=== PATIENT | male | born 1960 | race Caucasian/White ===

== ENCOUNTER 2021-02-27 18:58 | Emergency (ER) | payer OTHER, SELFPAY ==
[2021-02-27 18:59] VITALS: BP 106/70; PULSE 69; RESP 18; TEMP 35.8; O2SAT 94; BMI 35.7
[2021-02-27 19:30] VITALS: BP 97/69; PULSE 65; RESP 16; O2SAT 93
--- NOTE | 2021-02-27 19:43 | EKG12_ITS ---
Test Reason : SYNCOPE Blood Pressure : / mmHG Vent. Rate : 063 BPM Atrial Rate : 063 BPM P-R Int : 170 ms QRS Dur : 074 ms QT Int : 390 ms P-R-T Axes : 046 -19 030 degrees QTc Int : 399 ms Normal sinus rhythm Normal ECG Confirmed by EDAGRDO SALINAS, NEISHA ([id number]), editor magazine SHOSHANA VEGA ([id number]) on 03/02/2021 8:53:16 AM Referred By: JEREMY Confirmed By:NEISHA REYNOSO MD
--- NOTE | 2021-02-27 19:43 | CT_ITS ---
INDICATION: fall EXAMINATION: CT CERVICAL SPINE - CT Spine Cervical W/O Contrast Injection TECHNIQUE: Helically acquired images were obtained of the cervical spine. 2D reformatted images were reviewed. A radiation dose optimization technique was used for this scan. IV Contrast dosage and agent: None. COMPARISON: None. FINDINGS: VERTEBRAE: No fracture or traumatic subluxation. No discrete lytic or blastic abnormality. No focal malalignment however there is loss of the normal lordotic curvature. This can be degenerative or associated with muscle spasms. Normal craniocervical junction and cervicothoracic junction. DISCS and SPINAL CANAL: There is multilevel degenerative disc and endplate changes as well as uncovertebral joint arthropathy, C3-4, through C6-7. This does appear to result in some mild bilateral neural foraminal narrowing at C5-6 and C6-7 greater than C4-5. There is also C7-T1 significant bilateral facet arthropathy and hypertrophy resulting in some mild neuroforaminal narrowing bilaterally. There is appear to be some moderate central canal stenosis at C6-7. Assessment is limited on CT. NECK SOFT TISSUES: No prevertebral soft tissue swelling. There is no cervical adenopathy. Note of tortuous common carotid arteries. LUNG APICES: Clear. CT/Spine Cervical without Contras IMPRESSION: No fracture or focal malalignment to suggest ligamentous injury. Degenerative disc disease with uncovertebral joint and facet joint arthropathy as above. There does appear to be some central canal and neural foraminal narrowing as above. Electronically Signed: Fermin Charles DO at 22:33 EDT Tel , Service support ,
[2021-02-27 19:55] LABS: Absolute Lymphocyte Count 1.69 X10^3/uL (0.83-4.51); Absolute Neutrophil Count 4.9 X10^3/uL (2.0-7.7); Basophil# 0.03 X10^3/uL; Basophil% 0.4 % (0-1); Eosinophil# 0.15 X10^3/uL; Hematocrit 44.9 % (40-54); Hemoglobin 14.8 g/dL (13.0-16.5); Lymphocyte # 1.69 X10^3/ul (0.83-4.51); Lymphocyte % 22.9 % (19-41); Mean Corpuscular Hgb 30.4 pg (27.0-32.0); Mean Corpuscular Volume 92.2 fL (80-94); Mean Platelet Vol. 10.2 fl (6.2-12.0); Monocyte# 0.62 X10^3/uL; Monocyte% 8.4 % (0-10); NRBC Flagged by Analyzer 0 % (0-5); Neutrophil # 4.87 X10^3/uL (2.7-7.7); Neutrophil % 65.9 % (47-70); Platelet Count 191 K/mm3 (150-450); RBC Distribution Width CV 13.6 % (11.6-14.6); RBC Distribution Width SD 46.7 fl (35.1-43.9); Red Blood Count 4.87 M/mm3 (4.6-6.2); White Blood Count 7.4 K/mm3 (4.4-11.0)
[2021-02-27 20:08] LABS: Anion Gap 7 (5-15); BUN 11 mg/dL (7-18); BUN/Creat Ratio 10.9 RATIO (10-20); Calcium,Total 8.3 mg/dL (8.5-10.1); Chloride 108 mmol/L (98-107); Creatinine, Serum 1.01 mg/dL (0.70-1.30); EST Glomerular Filtration Rate 80 mL/min (>60); Est Glom Filt Rate - Afr Amer 97 mL/min (>60); Estimated Creatinine Clearance 91.56 ml/min; Glucose 96 mg/dL (74-106); Potassium 4.3 mmol/L (3.5-5.1); Sodium Level 142 mmol/L (136-145)
[2021-02-27 20:25] LABS: Troponin-I HS 4 pg/mL (3.0-78.0)
--- NOTE | 2021-02-27 20:45 | CT_ITS ---
INDICATION: fall EXAMINATION: CT BRAIN - CT Head or Brain W/O Contrast Injection TECHNIQUE: Multiple axial images were obtained of the head without intravenous contrast. A radiation dose optimization technique was used for this scan. IV Contrast dosage and agent: None. COMPARISON: CT cervical spine 02/27/2021. No prior head imaging. FINDINGS: BRAIN PARENCHYMA: No intra- or extra-axial hemorrhage. No evidence of acute infarct. No intracranial mass or mass effect. There is preservation of the plasencia/white matter interface. Posterior fossa structures are unremarkable. CSF SPACES: Appropriate for age. No hydrocephalus. Basal cisterns are patent. CALVARIUM, SKULL BASE, PARANASAL SINUSES AND MASTOID AIR CELLS: Small mucous retention cyst left maxillary sinus. Paranasal sinuses and mastoid air cells and middle ears are otherwise normally aerated. No fracture, discrete lytic or blastic abnormalities. ORBITS: There is increased diameter of the superior ophthalmic veins bilaterally measuring between 5 and 6 mm in thickness. Extracranial soft tissues and orbits otherwise normal in appearance. No evidence of scalp injury. ASPECTS Score for Acute Strokes: 10 CT/Brain/Head without Contrast IMPRESSION: No evidence of acute intracranial pathology. Increased diameter superior ophthalmic veins measuring between 5 and 6 mm. This is a nonspecific finding but can be seen with cavernous sinus thrombosis, and unlikely patient with otherwise normal CT head and no reported corollary clinical findings to suggest potential cavernous sinus thrombosis. Consider nonemergent MRI brain. Electronically Signed: Fermin Charles DO at 22:23 EDT Tel , Service support ,
[2021-02-27 20:58] VITALS: BP 108/74; PULSE 68; RESP 16; O2SAT 96
[2021-02-27 22:30] VITALS: BP 112/72; PULSE 75; RESP 23; O2SAT 95
--- NOTE | 2021-02-27 22:58 | EX.ED.DYSGE1 ---
HPI History of Present Illness Chief Complaint: Syncope Informant: patient and family Narrative Narrative: 60-year-old male presenting after syncopal episode. Patient states he was drinking wine this evening. He states he had approximately 4 glasses of wine and then smoked marijuana. Family states he stood up and fell and then stood up again and fell again. Patient was unresponsive. Family started CPR and 911 was called. On EMS arrival patient was awake and sitting in a chair. He was given Narcan and became more alert. He now denies complaints. He denies headache. Denies chest pain or shortness of breath. He is unsure if there may have been another drug in the marijuana. Prior similar symptoms: No Recent Illness/Hospitalization: No PFSH PFSH Medical History no medical history Home Medications NK 02/27/21 [History Last Taken Unknown] Allergy/AdvReac Type Severity Reaction Status Date / Time No Known Allergies Allergy Verified 02/27/21 19:05 Social History Smoking Status: Current every day smoker tobacco type: cigarettes ROS ROS ED Constitutional Constitutional ED: Denies fever(s) Eyes Eyes: Denies blurry vision or change in vision ENT ENT ED: Denies rhinorrhea or sore throat Cardiovascular Cardiovascular: Denies chest pain or palpitations Respiratory/Chest Respiratory/Chest: Denies cough or dyspnea Gastrointestinal Gastrointestinal: Denies abdominal pain, diarrhea, nausea or vomiting Genitourinary Genitourinary ED: Denies dysuria Musculoskeletal Musculoskeletal: Denies myalgias Integumentary Denies rash Neurologic Neurologic: Denies headache(s), paresthesias or weakness Psychiatric Psychiatric: Denies suicidal thoughts EXAM Physical Exam Const Vital Signs: 02/27/21 18:59 02/27/21 19:30 02/27/21 20:58 Temperature 96.4 F L Temperature Source Temporal Pulse Rate 69 65 68 Respiratory Rate 18 16 16 Respiratory Effort Normal Non-Labored Respiratory Pattern Normal Blood Pressure 106/70 97/69 108/74 Blood Pressure Mean 82 78 85 Pulse Ox 94 93 96 Oxygen Delivery Method Room Air Room Air 02/27/21 22:30 Temperature Temperature Source Pulse Rate 75 Respiratory Rate 23 H Respiratory Effort Respiratory Pattern Blood Pressure 112/72 Blood Pressure Mean 85 Pulse Ox 95 Oxygen Delivery Method Room Air Positive well nourished and well developed General Appearance ED: well developed HEENT Reports normocephalic and head/scalp atraumatic Negative for trauma Eyes PERRL and EOMs intact bilaterally Neck supple Neck Narrative: No midline tenderness General: Negative for tenderness Chest Wall inspection of chest normal Resp normal respiratory effort and clear to auscultation bilaterally Cardio regular rate and regular rhythm GI non-tender and non-distended Palpation: soft; Negative for guarding or rebound tenderness present no CVA tenderness Extremity normal to inspection Neuro oriented x3, CN's II-XII intact bilaterally and no sensory deficits noted Sensorium / Orientation: alert Motor Exam: strength 5/5 throughout Psych mental status grossly normal Skin no rashes or lesions noted MDM MDM MDM Narrative Medical decision making narrative: EKG is normal sinus rhythm rate of 63 with no acute ischemic changes, similar to previous EKG. CBC, chemistries are unremarkable. Troponin is negative. CT head and neck were obtained. CT head shows no evidence of acute intracranial pathology. Increased diameter of superior ophthalmic veins measuring between 5 and 6 mm. This is a nonspecific finding but can be seen with cavernous sinus thrombosis. Unlikely with otherwise normal head CT and no clinical findings to suggest potential cavernous sinus thrombosis. Consider nonemergent MRI. states that his ophthalmic veins have been noted to be abnormal in the past and he follows with a physician for this. CT neck shows no fracture or malalignment. Degenerative disc disease. Patient was observed in the ED. He remains hemodynamically stable. He feels improved and is requesting discharge home. Advised to follow-up with primary care physician. Advised return to ED for worsening complaints. Lab Data Attestation: I reviewed the patient's lab results. Labs: Laboratory Results - last 24 hr 02/27/21 02/27/21 02/27/21 19:50 19:50 19:50 WBC 7.4 RBC 4.87 Hgb 14.8 Hct 44.9 MCV 92.2 MCH 30.4 MCHC 33.0 RDW Std Deviation 46.7 H RDW Coeff of Renetta 13.6 Plt Count 191 MPV 10.2 Immature Gran % (Auto) 0.400 Neut % (Auto) 65.9 Lymph % (Auto) 22.9 Carlton % (Auto) 8.4 Eos % (Auto) 2.0 Baso % (Auto) 0.4 Absolute Neuts (auto) 4.9 Absolute Lymphs (auto) 1.69 Nucleated RBC % 0 Sodium 142 Potassium 4.3 Chloride 108 H Carbon Dioxide 27.0 Anion Gap 7 BUN 11 Creatinine 1.01 Estim Creat Clear Calc 91.56 Est GFR (MDRD) Af Amer 97 Est GFR (MDRD) Non-Af 80 BUN/Creatinine Ratio 10.9 Glucose 96 Calcium 8.3 L Troponin I High Sens 4 Radiography Diagnostic Testing: Clinical Impression(s) from Imaging Studies Cervical Spine CT 02/27/21 19:43 IMPRESSION: No fracture or focal malalignment to suggest ligamentous injury. Degenerative disc disease with uncovertebral joint and facet joint arthropathy as above. There does appear to be some central canal and neural foraminal narrowing as above. Electronically Signed: Fermin Charles DO at 22:33 EDT Tel , Service support , Brain CT 02/27/21 20:45 IMPRESSION: No evidence of acute intracranial pathology. Increased diameter superior ophthalmic veins measuring between 5 and 6 mm. This is a nonspecific finding but can be seen with cavernous sinus thrombosis, and unlikely patient with otherwise normal CT head and no reported corollary clinical findings to suggest potential cavernous sinus thrombosis. Consider nonemergent MRI brain. Electronically Signed: Fermin Charles DO at 22:23 EDT Tel , Service support , EKG Initial EKG: Attestation: I personally reviewed and interpreted this EKG as follows: Interpretation: Sinus Rhythm and No Acute Injury Pattern Prior: Unchanged Discharge Plan Triage Chief Complaint: Syncope ED Provider: Apple Martinez Dx/Rx/DC Orders Clinical Impression: Alcohol intoxication, Syncope Instructions: ED Fainting, Uncertain Cause Prescriptions: No Action NK RF: 0 Primary Care Provider: NOT,DEFINED Referrals: NOT,DEFINED [Primary Care Provider] - Disposition Disposition: Home, Self Care
[2021-02-27 23:03] VITALS: PULSE 70; RESP 16
== END 2021-02-27 23:18 | disposition home or self-care (01) ==
PROVIDERS: Emergency Provider Emergency Medicine
DX: R55 Syncope and collapse (principal); F10.129 Alcohol abuse with intoxication, unspecified; F17.210 Nicotine dependence, cigarettes, uncomplicated; M47.819 Spondylosis without myelopathy or radiculopathy, site unspecified; F12.90 Cannabis use, unspecified, uncomplicated; Y90.9 Presence of alcohol in blood, level not specified
CPT/HCPCS: 70450; 72125; 80048; 84484; 85025; 93005; 99285; A4216

== ENCOUNTER 2024-04-20 15:37 | Inpatient (IN) | payer SELFPAY ==
[2024-04-20] VITALS (12 sets, daily range): BP systolic 89–154; BP diastolic 60–86; PULSE 71–89; RESP 12–24; TEMP 36.8–37; O2SAT 84–98; BMI 35.6; BMI 34.8
--- NOTE | 2024-04-20 15:42 | EKG12_ITS ---
Test Reason : SYNCOPE Blood Pressure : */* mmHG Vent. Rate : 82 BPM Atrial Rate : 68 BPM P-R Int : 140 ms QRS Dur : 84 ms QT Int : 370 ms P-R-T Axes : 49 -25 71 degrees QTcB Int : 432 ms Sinus rhythm with occasional Premature ventricular complexes Otherwise normal ECG Confirmed by Fermin Hallman ([id number]), supervising editor trailer AMPARO MACHADO ([id number]) on 04/22/2024 6:58:53 AM Referred By: Ministerio Elkins Confirmed By: Fermin Hallman
--- NOTE | 2024-04-20 15:42 | CT_ITS ---
STUDY: CT BRAIN WITHOUT CONTRAST REASON FOR EXAM: Male, 63 years old. syncope v seizure RADIATION DOSAGE (If Supplied By Facility): CTDIvol = ( 44.99 ) mGy, DLP = ( 745.49 ) mGycm TECHNIQUE: Transaxial CT imaging of the brain was performed without administration of intravenous contrast material. Individualized dose optimization techniques were used for this CT. The protocol utilizes one or more of the following dose reduction techniques: automated exposure control, adjustment of mA and/or kV according to patient size,and/or use of iterative reconstruction technique. COMPARISON: February 27, 2021 CT brain FINDINGS: Normal soft tissue structures. Normal calvarium. Normal size ventricles and extra-axial spaces for the patient''s age. Normal white matter tracts of the cerebral hemispheres. Normal basal ganglia and thalami. Normal brainstem. Normal cerebellum. There is no intracranial hemorrhage. There are no findings of an acute ischemic infarction. Polyp left maxillary sinus. CT/Brain/Head without Contrast IMPRESSION: Normal unenhanced CT scan of the brain. Electronically Signed: Delonte Soria MD at 19:19 EST ,
--- NOTE | 2024-04-20 15:42 | EX.ED.DYSGE1 ---
HPI History of Present Illness Chief Complaint: Syncope [facility] Medical History no medical history Home Medications ?Medication ?Instructions ?Recorded ?Last Taken ?Type NK 02/27/21 Unknown History Allergy/AdvReac Type Severity Reaction Status Date / Time No Known Allergies Allergy Verified 02/27/21 19:05 Social History Smoking Status: Current every day smoker tobacco type: cigarettes EXAM Physical Exam Const Vital Signs: 04/20/24 15:39 04/20/24 15:52 04/20/24 15:52 Temperature 98.6 F 98.2 F Temperature Source Temporal Temporal Pulse Rate 73 72 Respiratory Rate 18 12 Respiratory Effort Normal Respiratory Pattern Normal Blood Pressure 154/86 H 115/83 H Blood Pressure Mean 108 93 Pulse Ox 95 90 Oxygen Delivery Method Room Air Room Air Oxygen Flow Rate (L/min) 04/20/24 16:27 04/20/24 16:27 04/20/24 16:40 Temperature 98.5 F Temperature Source Temporal Pulse Rate 85 89 Respiratory Rate 16 16 Respiratory Effort Respiratory Pattern Blood Pressure 89/62 L 98/64 Blood Pressure Mean 71 75 Pulse Ox 84 93 95 Oxygen Delivery Method Room Air Nasal Cannula Nasal Cannula Oxygen Flow Rate (L/min) 3 04/20/24 17:00 04/20/24 18:00 04/20/24 19:00 Temperature 98.5 F 98.2 F Temperature Source Oral Oral Pulse Rate 85 80 71 Respiratory Rate 16 16 20 H Respiratory Effort Respiratory Pattern Blood Pressure 99/71 110/77 115/79 Blood Pressure Mean 80 88 91 Pulse Ox 93 98 96 Oxygen Delivery Method Nasal Cannula Nasal Cannula Oxygen Flow Rate (L/min) 3 3 04/20/24 20:00 Temperature Temperature Source Pulse Rate 78 Respiratory Rate 16 Respiratory Effort Respiratory Pattern Blood Pressure 100/68 Blood Pressure Mean 78 Pulse Ox 97 Oxygen Delivery Method Nasal Cannula Oxygen Flow Rate (L/min) 2 MDM MDM MDM Narrative Medical decision making narrative: HISTORY OF PRESENT ILLNESS: 63-year-old male presents with concern for lightheadedness, dizziness. States symptoms started approximately 1 hour prior to arrival. Per the patient's he has history of syncope. She states the patient felt hot and dizzy and nauseous at the grocery store. He states on the way here he almost passed out. Upon arrival per nursing patient had a syncopal episode. He regained consciousness and had full mental faculties immediately after syncope. There is no tongue biting or bowel or bladder incontinence to suggest seizure. Patient has no history of seizure. Patient does note a recent cough. No recent blood loss. No chest pain or shortness of breath. No belly pain. The patient does complain of nausea. REVIEW OF SYSTEMS: Pertinent positives: Syncope, nausea vomiting, dizziness Pertinent negatives: Focal weakness, bowel or bladder incontinence PHYSICAL EXAM: Nursing triage notes reviewed, Vital signs reviewed Constitutional: please see mdm HENT: MMM Eyes: Pupils equal round and reactive to light, Extraocular muscles intact Neck: No stridor, no JVD, full neck ROM Lungs: Clear to auscultation, No wheezing or rales. No increased work of breathing, no conversational dyspnea, no accessory muscle use, no nasal flaring. No respiratory distress noted Heart: Regular rate and rhythm, No murmurs, No rubs and No gallops, 2+ distal pulses (radial, femoral, posterior tibial) in all extremities Abdomen: Soft, there is no tenderness, rigidity, rebound or guarding, no obvious peritoneal signs, no palpable pulsatile abdominal masses, no auscultated abdominal bruit : No CVAT Extremities: No edema Neuro: No new focal neurological deficits, cranial nerves II through XII intact, 5/5 strength in all present extremities. Intact sensation to light touch in all present extremities, 2+ reflexes bilateral patella tendons. Skin: No rash or lesions noted MEDICAL DECISION MAKING: Chief Complaint: Syncope External records reviewed: Reviewed prior ED record from 2020 Factors affecting care: Syncope Social determinants of health: History of alcohol abuse, marijuana abuse History obtained from others: Consults: Internal Medicine (Dr. Irvin) [facility] Narrative: Patient was initially hemodynamically stable, afebrile and nontoxic-appearing. He had no lateralizing neurologic findings. No focal cardiopulmonary normalities. He was alert and orient x 3. His abdomen is soft with slight tenderness. I considered the following differential diagnosis: ICH, ACS, anemia, electro disturbance, PE, COVID, flu, RSV, intra-abdominal surgical emergency, acute pancreatitis, dehydration, hepatobiliary pathology, electrolyte disturbance, I obtained a broad lab and imaging workup to further elucidate the etiology of patient's complaints. Patient was initially resuscitated with 4 mg IV Zofran and 500 cc bolus. ALL IMAGES (IF OBTAINED) HAVE BEEN PERSONALLY REVIEWED AND INTERPRETED BY MYSELF. EKG with normal sinus rhythm, rate of 82, normal axis, QTc 432, no STEMI, no signs of right heart strain, no signs of ARVD, Brugada or WPW D-dimer elevated at 0.73, concern for VTE will order CTA High-sensitivity troponin is negative, no evidence of myocardial ischemia CBC with leukocytosis suggestive of system inflammation, elevated hemoglobin suggestive hemoconcentration and dehydration, no thrombocytopenia BMP without evidence of significant electrolyte abnormalities, no anion gap, no acute kidney injury. LFTs show no evidence of hepatobiliary pathology. Lipase is wnl indicating no pancreatic inflammation. CT of the chest showed evidence of interstitial infiltrates COVID flu RSV negative The patient ED course became hypoxic requiring new oxygen requirement. This is likely explained by pneumonia. Patient was treated with IV ceftriaxone azithromycin to cover typical and atypical organisms. Given hypoxia new oxygen requirement and signs of pneumonia as well as syncope to be admitted for further evaluation, telemetry monitoring and further management. Discussed with hospitalist accepts patient case and recommended PCU. The patient and/or family, caregivers express understanding. The patient and/or family, caregivers agrees with the plan. Shared decision making: I will have a discussion with the patient and or visitors regarding risk/benefits of further testing or admission. They will be made aware of of the risk/benefits inherent in this decision they will be given the opportunity to voice understanding. Total critical care time today provided was at least 0 minutes. This excludes separately billable procedures. Critical care time (if documented) is secondary to the patient having high probability of clinically significant/life threatening deterioration in the patient's condition which required my urgent intervention. Impression: 1. Syncope 2. History of syncope 3. Nausea and vomiting 4. Hypoxia 5. CAP Dispo: discharge This note was generated with [employer] dictation software. It may contain incorrect words, spelling, and punctuation that were not noted in review of the chart prior to signing. Lab Data Labs: Laboratory Results - last 24 hr 04/20/24 04/20/24 15:40 17:59 WBC 14.0 H RBC 5.62 Hgb 16.9 H Hct 50.7 MCV 90.2 MCH 30.1 MCHC 33.3 RDW Std Deviation 45.3 H RDW Coeff of Renetta 13.6 Plt Count 218 MPV 11.1 D-Dimer Quant (PE/DVT) 0.73 H* Sodium 138 Potassium 3.9 Chloride 108 H Carbon Dioxide 24.0 Anion Gap 6 BUN 19 H Creatinine 1.13 Estim Creat Clear Calc 95.49 Est GFR (MDRD) Af Amer 84 Est GFR (MDRD) Non-Af 70 BUN/Creatinine Ratio 16.8 Glucose 103 Calcium 9.1 Total Bilirubin 0.40 AST 18 ALT 26 Alkaline Phosphatase 81 Troponin I High Sens < 3 L < 3 L B-Natriuretic Peptide 19.1 Total Protein 7.9 Albumin 3.7 Globulin 4.2 Albumin/Globulin Ratio 0.9 Lipase 22 Radiography Diagnostic Testing: Clinical Impression(s) from Imaging Studies Brain CT 04/20/24 15:42 IMPRESSION: Normal unenhanced CT scan of the brain. Electronically Signed: Delonte Soria MD at 19:19 EST Reading Location ID and State: [employer] / [place] Tel , Service support , Abdomen/Pelvis CT 04/20/24 15:43 IMPRESSION: Right lower lobe interstitial infiltrate. Coronary artery disease. Left adrenal adenoma. Small Duodenal diverticulum. Ileus. Mild compression fractures age indeterminate. Electronically Signed: Delonte Soria MD at 19:04 EST Reading Location ID and State: [employer] [place] Tel , Service support , Chest X-Ray 04/20/24 16:05 IMPRESSION: Possible mild bilateral perihilar interstitial infiltrates. Electronically Signed: Delonte Soria MD at 18:43 EST Reading Location ID and State: [employer] / [place] Tel , Service support , Chest CTA 04/20/24 16:15 IMPRESSION: Right greater than left basilar nonspecific interstitial infiltrates. Recommend follow-up. Coronary artery disease. Electronically Signed: Delonte Soria MD at 18:48 EST Reading Location ID and State: [employer] / [place] Tel , Service support , Discharge Plan Triage Chief Complaint: Syncope ED Provider: Kirk Root Dx/Rx/DC Orders Primary Care Provider: Pippa Boyle
--- NOTE | 2024-04-20 15:43 | CT_ITS ---
STUDY: CT ABDOMEN AND PELVIS WITH CONTRAST REASON FOR EXAM: Male, 63 years old. nausea vomiting RADIATION DOSAGE (If Supplied By Facility): CTDIvol = ( 23.45 ) mGy, DLP = ( 1580.00 ) mGycm TECHNIQUE: Transaxial images were obtained from the dome of the diaphragm to the symphysis pubis without oral contrast. IV 100mL Isovue-[id number] was administered. Sagittal and coronal images were reconstructed. Individualized dose optimization techniques were used for this CT. The protocol utilizes one or more of the following dose reduction techniques: automated exposure control, adjustment of mA and/or kV according to patient size,and/or use of iterative reconstruction technique. COMPARISON: May 13, 2010 CT abdomen and pelvis report without images FINDINGS: Right lower lobe interstitial infiltrate. Calcific coronary artery disease. Normal liver. Normal gallbladder and extrahepatic biliary system. Normal spleen. Normal pancreas. 1 cm left adrenal nodule. Right adrenal normal. Normal right kidney. Normal left kidney. Normal visualized stomach. 18 mm duodenal diverticulum. Air-fluid levels within the colon and small bowel. The appendix is visualized and appears normal. Normal abdominal aorta. Normal inferior vena cava. Normal retroperitoneum. Normal urinary bladder. Bilateral fat-containing inguinal hernias. Fat-containing umbilical hernia. Anterior wedging T11, T12 and L1. CT/Abdomen/Pelvis W IV Cont ONLY IMPRESSION: Right lower lobe interstitial infiltrate. Coronary artery disease. Left adrenal adenoma. Small Duodenal diverticulum. Ileus. Mild compression fractures age indeterminate. Electronically Signed: Delonte Soria MD at 19:04 EST ,
[2024-04-20] MEDS: 0.9% Normal Saline (500mL Bag) 500 ML 999 ML IV (15:49)
[2024-04-20 15:54] LABS: Hematocrit 50.7 % (40-54); Hemoglobin 16.9 g/dL (13.0-16.5); Mean Corp Hgb Conc 33.3 g/dL (32-36); Mean Corpuscular Hgb 30.1 pg (27.0-32.0); Mean Corpuscular Volume 90.2 fL (80-94); Mean Platelet Vol. 11.1 fl (6.2-12.0); Platelet Count 218 K/mm3 (150-450); RBC Distribution Width CV 13.6 % (11.6-14.6); RBC Distribution Width SD 45.3 fl (35.1-43.9); Red Blood Count 5.62 M/mm3 (4.6-6.2)
--- NOTE | 2024-04-20 16:05 | RAD_ITS ---
STUDY: X-RAY CHEST REASON FOR EXAM: Male, 63 years old. syncope TECHNIQUE: Single frontal view of the chest. COMPARISON: May 13, 2010 FINDINGS: Questionable mild perihilar infiltrates. There is no demonstrated pleural abnormality. Normal size heart. Normal mediastinum and kt. Normal visualized pulmonary arteries. Normal visualized aortic arch and descending thoracic aorta. Normal visualized thoracic spine. Normal visualized ribs, clavicles, and shoulders. There is no demonstrated abnormality of the visualized soft tissue structures of the upper abdomen. RAD/Chest 1 View (Portable) IMPRESSION: Possible mild bilateral perihilar interstitial infiltrates. Electronically Signed: Delonte Soria MD at 18:43 EST ,
[2024-04-20 16:14] LABS: ALB/GLOB Ratio 0.9 RATIO (0.9-2.4); AST(SGOT) 18 U/L (15-37); Alanine Aminotransfer ALT/SGPT 26 U/L (16-61); Albumin, Serum 3.7 g/dL (3.2-5.0); Alkaline Phosphatase 81 U/L (45-117); Anion Gap 6 (5-15); BUN 19 mg/dL (7-18); BUN/Creat Ratio 16.8 RATIO (10-20); Calcium,Total 9.1 mg/dL (8.5-10.1); Chloride 108 mmol/L (98-107); Creatinine, Serum 1.13 mg/dL (0.70-1.30); EST Glomerular Filtration Rate 70 mL/min (>60); Est Glom Filt Rate - Afr Amer 84 mL/min (>60); Estimated Creatinine Clearance 95.49 ml/min; Globulin 4.2 g/dL (2.2-4.2); Glucose 103 mg/dL (74-106); Lipase 22 U/L (13-75); Potassium 3.9 mmol/L (3.5-5.1); Protein, Total 7.9 g/dL (6.4-8.2); Sodium Level 138 mmol/L (136-145); Troponin-I HS (w/2H Reflex) < 3 pg/mL (3.0-78.0)
[2024-04-20 16:15] LABS: D-Dimer Quantitative (DVT/PE) 0.73 FEU/ug/m (0.27-0.49)
--- NOTE | 2024-04-20 16:15 | CT_ITS ---
STUDY: CTA CHEST REASON FOR EXAM: Male, 63 years old. syncope elevated d-dimer RADIATION DOSAGE (If Supplied By Facility): CTDIvol = ( 23.45 ) mGy, DLP = ( 1580.00 ) mGycm TECHNIQUE: The examination was performed with the intravenous administration of IV 100mL Isovue-370. Post-processing of the angiographic images was performed, with multiplanar reformation and 3D reconstruction. Individualized dose optimization techniques were used for this CT. The protocol utilizes one or more of the following dose reduction techniques: automated exposure control, adjustment of mA and/or kV according to patient size,and/or use of iterative reconstruction technique. COMPARISON: Chest x-ray May 13, 2010 FINDINGS: Normal enhancement of the main pulmonary artery and right and left pulmonary arteries. Normal enhancement of the bilateral peripheral pulmonary arteries. There is no demonstrated pulmonary embolism. Normal thoracic aorta and visualized great vessels. There is no demonstrated aortic dissection. Calcific coronary artery disease. Normal mediastinum. Normal hilar regions. Normal visualized trachea and bronchi. Right greater than left basilar groundglass interstitial infiltrates. Normal pulmonary parenchyma. Normal pleura. Normal chest wall structures. Normal osseous structures. Normal visualized upper abdomen. CT/CTA Chest W/WO Contrast IMPRESSION: Right greater than left basilar nonspecific interstitial infiltrates. Recommend follow-up. Coronary artery disease. Electronically Signed: Delonte Soria MD at 18:48 EST ,
[2024-04-20 16:38] LABS: BNP,B-Type NATRIURETIC PEPTIDE 19.1 pg/mL (0-100)
[2024-04-20] MEDS: 0.9% Normal Saline (1000mL) 1,000 ML 999 ML IV (16:46)
[2024-04-20 17:49] LABS: Reflex Troponin-HS? (from REC) Y
[2024-04-20 18:28] LABS: Troponin-I HS < 3 pg/mL (3.0-78.0)
[2024-04-20] MEDS: Ceftriaxone 1 GM/50 ML BAG IV (20:33)
--- NOTE | 2024-04-20 20:36 | PCM.HP.STD ---
HPI - General General Date of Admission: 04/20/24 Date of Service: 04/20/24 Chief Complaint: Syncope. HPI Narrative RITIKA CARDONA, is a 63 M with a past medical history of obesity; with BMI of 35.6 this admission and chronic tobacco abuse who presents to [facility] ER complaining of syncopal event. Mr. Cardona reports his symptoms began approximately 1 hour prior to arrival while he was at the grocery store with his when he suddenly became dizzy and nauseous and feeling hot all over. Then they decided to come to the hospital and he almost passed out with complete loss of consciousness en-route. Upon his arrival the FLOOR SPECIALIST witnessed an additional syncopal episode. He regained consciousness and had full mental faculties immediately after a syncopal event with no tongue biting, bowel or bladder incontinence or tonic-clonic activities to suggest seizure. He denies a history of seizure activity or previous syncopal events. He does admit to a recent cough and nausea but he denies shortness of breath, bleeding, abdominal pain or vomiting. In the ER the patient was noted to have a CTA of the chest that revealed right greater than left basilar nonspecific interstitial infiltrates due to suspected Pneumonia with a corresponding leukocytosis of 14K present on admission and a mildly elevated D-dimer of 0.73 present on admission complicated by clinical evidence of respiratory insufficiency treated with 3L NC compounded by recent Syncope he was then admitted to PCU for ongoing care for stay that is expected to extend beyond 2 midnights. PFSH Medical History no medical history Home Medications ?Medication ?Instructions ?Recorded ?Last Taken ?Type NK 02/27/21 Unknown History Allergy/AdvReac Type Severity Reaction Status Date / Time No Known Allergies Allergy Verified 02/27/21 19:05 Family History no significant family his Surgical History no surgical history Social History Smoking Status: Current every day smoker tobacco type: cigarettes ROS ROS Narrative Review of Systems: Constitutional: Patient denies fever or chills. Eyes: Patient denies blurry vision or discharge from eyes. ENT: Patient denies runny nose, sore throat or ear pain. Resp: Patient denies shortness of breath or cough. CV: Patient admits to syncope and near syncope as per HPI. He denies chest pain, palpitations or heart racing. GI: Patient admits to nausea and vomiting with bilious emesis as per HPI. He denies abdominal pain, constipation or diarrhea. : Patient denies dysuria or hematuria. MSK: Patient denies arthralgias or myalgias. Skin: Patient denies rash, abscess or jaundice. Psych: Patient denies symptoms of uncontrolled depression or anxiety. Neuro: Patient denies headache, paresthesias or focal neurologic deficits. Allergy: Patient denies lip swelling, tongue swelling or urticaria. Hematology: Patient denies easy bleeding or easy bruisability. Endocrinology: Patient denies polyuria, polydipsia or polyphagia. 14 point review of systems otherwise negative except for positives noted above in HPI. Vital Signs Vital Signs Vital Signs: 04/20/24 15:39 04/20/24 15:52 04/20/24 15:52 Temperature 98.6 F 98.2 F Temperature Source Temporal Temporal Pulse Rate 73 72 Respiratory Rate 18 12 Respiratory Effort Normal Respiratory Pattern Normal Blood Pressure 154/86 H 115/83 H Blood Pressure Mean 108 93 Pulse Ox 95 90 Oxygen Delivery Method Room Air Room Air Oxygen Flow Rate (L/min) 04/20/24 16:27 04/20/24 16:27 04/20/24 16:40 Temperature 98.5 F Temperature Source Temporal Pulse Rate 85 89 Respiratory Rate 16 16 Respiratory Effort Respiratory Pattern Blood Pressure 89/62 L 98/64 Blood Pressure Mean 71 75 Pulse Ox 84 93 95 Oxygen Delivery Method Room Air Nasal Cannula Nasal Cannula Oxygen Flow Rate (L/min) 3 04/20/24 17:00 04/20/24 18:00 04/20/24 19:00 Temperature 98.5 F 98.2 F Temperature Source Oral Oral Pulse Rate 85 80 71 Respiratory Rate 16 16 20 H Respiratory Effort Respiratory Pattern Blood Pressure 99/71 110/77 115/79 Blood Pressure Mean 80 88 91 Pulse Ox 93 98 96 Oxygen Delivery Method Nasal Cannula Nasal Cannula Oxygen Flow Rate (L/min) 3 3 04/20/24 20:00 Temperature Temperature Source Pulse Rate 78 Respiratory Rate 16 Respiratory Effort Respiratory Pattern Blood Pressure 100/68 Blood Pressure Mean 78 Pulse Ox 97 Oxygen Delivery Method Nasal Cannula Oxygen Flow Rate (L/min) 2 Weight Weight: 277 lb 1.937 oz Body Mass Index (BMI) 35.6 Results Lab / Micro Data 04/20/24 15:40 04/20/24 15:40 Labs: Laboratory Results - last 24 hr 04/20/24 15:40: WBC 14.0 H, RBC 5.62, Hgb 16.9 H, Hct 50.7, MCV 90.2, MCH 30.1, MCHC 33.3, RDW Std Deviation 45.3 H, RDW Coeff of Renetta 13.6, Plt Count 218, MPV 11.1, D-Dimer Quant (PE/DVT) 0.73 H*, Sodium 138, Potassium 3.9, Chloride 108 H, Carbon Dioxide 24.0, Anion Gap 6, BUN 19 H, Creatinine 1.13, Estim Creat Clear Calc 95.49, Est GFR (MDRD) Af Amer 84, Est GFR (MDRD) Non-Af 70, BUN/Creatinine Ratio 16.8, Glucose 103, Calcium 9.1, Total Bilirubin 0.40, AST 18, ALT 26, Alkaline Phosphatase 81, Troponin I High Sens < 3 L, B-Natriuretic Peptide 19.1, Total Protein 7.9, Albumin 3.7, Globulin 4.2, Albumin/Globulin Ratio 0.9, Lipase 22 04/20/24 17:59: Troponin I High Sens < 3 L Micro: Microbiology 04/20/24 15:45 Mucosa - Nasopharyngeal SARS-CoV-2, Influenza & RSV (PCR) - Final Imaging Radiology Impression Brain CT 04/20/24 15:42 IMPRESSION: Normal unenhanced CT scan of the brain. Electronically Signed: Delonte Soria MD at 19:19 EST Reading Location ID and State: [employer] / [place] Tel , Service support , Abdomen/Pelvis CT 04/20/24 15:43 IMPRESSION: Right lower lobe interstitial infiltrate. Coronary artery disease. Left adrenal adenoma. Small Duodenal diverticulum. Ileus. Mild compression fractures age indeterminate. Electronically Signed: Delonte Soria MD at 19:04 EST Reading Location ID and State: [employer] / [place] Tel , Service support , Chest X-Ray 04/20/24 16:05 IMPRESSION: Possible mild bilateral perihilar interstitial infiltrates. Electronically Signed: Delonte Soria MD at 18:43 EST , Chest CTA 04/20/24 16:15 IMPRESSION: Right greater than left basilar nonspecific interstitial infiltrates. Recommend follow-up. Coronary artery disease. Electronically Signed: Delonte Soria MD at 18:48 EST Reading Location ID and State: [facility] / [place] Tel , Service support , Assessment & Plan Assessment/Plan (1) Syncope: QUALIFIERS: Syncope type: unspecified Qualified Code(s): R55 - Syncope and collapse PLAN: Plan 1. CTA of the chest that Revealed right greater than Left basilar nonspecific interstitial infiltrates due to suspected Pneumonia with a corresponding leukocytosis of 14K present on admission with mildly elevated D-dimer of 0.73 present on admission with CTA scan negative for PE - Admit to PCU. Continue empiric IV Rocephin and IV Azithromycin begun in the ER and await culture and sensitivity data. Check urinary antigens for Streptococcus pneumonia and Legionella. Give vitamin D3, vitamin C and zinc to help boost immunity and hopefully speed recovery. Give Tylenol prn for [id number] (level 1-5/10) pain or fever. Give [place] prn for severe (level 6-10/10) pain. 2. Respiratory insufficiency treated with 3L NC arising from #1 - Wean supplemental oxygen as tolerated. 3. Syncope with hypotension into the ~80mmHg systolic range complicating #1 & #2 - Check echocardiogram to evaluate LVEF. Check carotid Doppler to evaluate for stenosis. Aggressively volume resuscitate and monitor for improvement. 4. Chronic tobacco abuse compounding #1 - #3 - Tobacco Cessation will be strongly encouraged with Nicotine patch offered to control cravings. 5. Obesity; with BMI of 35.6 this admission adding to the medical complexity of #1 - #4 - Weight loss will be recommended. Check TSH. This complicates his case and may hamper recovery. 6. DVT prophylaxis - Lovenox 40 mg sq daily. Total time: Approximately (but not less than) 75 minutes. Charges/Coding Visit Charges Inpatient E&M: 25066 Init Hosp L3
[2024-04-20] MEDS: Azithromycin 500 MG in Dextrose 5%-Water (250mL Bag) 250 ML 250 MG IV (21:14)
--- NOTE | 2024-04-20 22:32 | CDU_ITS ---
Reason For Study: Syncope Rt. Velocities/BP Lt. Velocities/BP Prox CCA 97.9/28.5 cm/sec. Prox CCA 128.9/34.0 cm/sec. Mid CCA 101.6/30.3 cm/sec. Mid CCA 105.2/30.3 cm/sec. Dist CCA 96.1/24.8 cm/sec. Dist CCA 112.5/38.8 cm/sec. Prox ICA 98.7/25.0 cm/sec. Prox ICA 74.3/20.4 cm/sec. Mid ICA 95.8/19.9 cm/sec. Mid ICA 66.7/28.0 cm/sec. Dist ICA 59.7/23.4 cm/sec. Dist ICA 59.1/30.8 cm/sec. Rt. ICA/CCA = 1.0. Lt. ICA/CCA = 0.7. Prox ECA 75.1/13.5 cm/sec. Prox ECA 59.1/30.8 cm/sec. Rt. Vert. 41.2/12.8 cm/sec. Lt. Vert. 45.7/19.3 cm/sec. Right Extracranial There is intimal thickening but no significant atherosclerotic plaque noted in the right common carotid artery. There is intimal thickening but no significant atherosclerotic plaque noted in the right internal carotid artery. There is intimal thickening but no significant atherosclerotic plaque noted in the right external carotid artery. Antegrade flow is noted in the right vertebral artery. Left Extracranial There is homogeneous, smooth atherosclerotic plaque noted in the left common carotid artery. There is homogeneous, smooth atherosclerotic plaque noted in the left internal carotid artery. There is intimal thickening but no significant atherosclerotic plaque noted in the left external carotid artery. Antegrade flow is noted in the left vertebral artery. Procedure Carotid Duplex 49643. This is a Carotid Duplex examination using B-mode, color flow and specral Doppler. The exam was diagnostic. Exam performed portable in patient room. VL/Carotid Duplex Ultrasound Interpretation Summary Normal right extracranial internal carotid. Mild (<50%) stenosis left extracranial internal carotid. Patent and antegrade vertebrals bilaterally. Ordering Physician: Ministerio Elkins Referring Physician: Pippa Boyle Performed By: Virgilio Samaniego RVT
[2024-04-20 23:16] LABS: Vitamin B12 320 pg/mL (211-911)
[2024-04-20] MEDS: 0.9% Normal Saline (1000mL) 1,000 ML 70 ML IV (23:17)
[2024-04-20 23:24] LABS: Alcohol, Blood (Medical)-Serum < 3.0 mg/dL
[2024-04-21] VITALS (7 sets, daily range): BP systolic 101–133; BP diastolic 73–87; PULSE 64–71; RESP 18; TEMP 36.6–36.9; O2SAT 92–95
[2024-04-21] MEDS: Ascorbic Acid 500 MG Tablet 1000 MG PO (08:56)
--- NOTE | 2024-04-21 10:25 | PN.HOSP_ITS ---
Reason for Visit Reason for Visit: Diagnoses Syncope and collapse (04/20/24) Objective Data Objective Data Vital Signs: Vital Signs Temp Pulse Resp BP Pulse Ox O2 Del Method O2 Flow Rate 98.5 F 71 18 101/73 95 Nasal Cannula 3 04/21/24 04:45 04/21/24 07:00 04/21/24 04:45 04/21/24 04:45 04/21/24 04:45 04/21/24 04:52 04/21/24 04:52 Oxygen Flow Rate (L/min) 3 Oxygen Delivery Method Nasal Cannula Weight: 271 lb 4.99 oz Body Mass Index (BMI) 34.8 Intake & Output: Intake and Output for Last 24 Hours 04/19/24 04/20/24 04/21/24 23:59 23:59 23:59 Intake Total 1805 / 1805 200 / 200 Balance 1805 / 1805 200 / 200 Lab / Micro Data 04/20/24 15:40 04/20/24 15:40 Labs: Laboratory Results - last 24 hr 04/20/24 15:40: WBC 14.0 H, RBC 5.62, Hgb 16.9 H, Hct 50.7, MCV 90.2, MCH 30.1, MCHC 33.3, RDW Std Deviation 45.3 H, RDW Coeff of Renetta 13.6, Plt Count 218, MPV 11.1, D-Dimer Quant (PE/DVT) 0.73 H*, Sodium 138, Potassium 3.9, Chloride 108 H, Carbon Dioxide 24.0, Anion Gap 6, BUN 19 H, Creatinine 1.13, Estim Creat Clear Calc 95.49, Est GFR (MDRD) Af Amer 84, Est GFR (MDRD) Non-Af 70, BUN/Creatinine Ratio 16.8, Glucose 103, Calcium 9.1, Total Bilirubin 0.40, AST 18, ALT 26, Alkaline Phosphatase 81, Troponin I High Sens < 3 L, B-Natriuretic Peptide 19.1, Total Protein 7.9, Albumin 3.7, Globulin 4.2, Albumin/Globulin Ratio 0.9, Lipase 22, Vitamin B12 320 04/20/24 17:59: Troponin I High Sens < 3 L, Folate 16.40, TSH 1.290 04/20/24 23:02: Ethyl Alcohol < 3.0 Micro: Microbiology 04/20/24 15:45 Mucosa - Nasopharyngeal SARS-CoV-2, Influenza & RSV (PCR) - Final Radiography Diagnostic Testing: Radiology Impression Brain CT 04/20/24 15:42 IMPRESSION: Normal unenhanced CT scan of the brain. Electronically Signed: Delonte Soria MD at 19:19 EST Reading Location ID and State: [facility] / [place] Tel , Service support , Abdomen/Pelvis CT 04/20/24 15:43 IMPRESSION: Right lower lobe interstitial infiltrate. Coronary artery disease. Left adrenal adenoma. Small Duodenal diverticulum. Ileus. Mild compression fractures age indeterminate. Electronically Signed: Delonte Soria MD at 19:04 EST Reading Location ID and State: [employer] [place] Tel , Service support , Chest X-Ray 04/20/24 16:05 IMPRESSION: Possible mild bilateral perihilar interstitial infiltrates. Electronically Signed: Delonte Soria MD at 18:43 EST Reading Location ID and State: [employer] / [place] Tel , Service support , Chest CTA 04/20/24 16:15 IMPRESSION: Right greater than left basilar nonspecific interstitial infiltrates. Recommend follow-up. Coronary artery disease. Electronically Signed: Delonte Soria MD at 18:48 EST Reading Location ID and State: [employer] / [place] Tel , Service support , Assessment & Plan Assessment/Plan (1) Syncope: QUALIFIERS: Syncope type: unspecified Qualified Code(s): R55 - Syncope and collapse PLAN: Plan 63-year-old male was brought to ED for lightheadedness/dizziness/daily, nausea started the grocery store near syncope inspection and then passed out stars and passed out in wheelchair but had complete recovery. Endorses no seizure episode. No history of epilepsy. Has recent cough but no chest pain or shortness of breath. 1 1. Bilateral lower lobes right more than left perihilar pneumonia: CTA of the chest that Revealed right greater than Left basilar nonspecific interstitial infiltrates due to suspected Pneumonia with a corresponding leukocytosis of 14K present on admission: Mildly elevated D-dimer of 0.73 but CTA scan negative for PE - Admit to PCU. Continue empiric IV Rocephin and IV Azithromycin begun in the ER and await culture and sensitivity data. Check urinary antigens for Streptococcus pneumonia and Legionella. Give vitamin D3, vitamin C and zinc to help boost immunity and hopefully speed recovery. Give Tylenol prn for [id number] (level 1-5/10) pain or fever. Give [place] prn for severe (level 6-10/10) pain. 2. Respiratory insufficiency treated with 3L NC arising from #1 - Wean supplemental oxygen as tolerated. 3. Syncope with hypotension into the ~80mmHg systolic range complicating #1 & #2 - Check echocardiogram to evaluate LVEF. Check carotid Doppler to evaluate for stenosis. Aggressively volume resuscitate and monitor for improvement. 4. Chronic tobacco abuse compounding #1 - #3 - Tobacco Cessation will be strongly encouraged with Nicotine patch offered to control cravings. 5. Obesity; with BMI of 35.6 this admission adding to the medical complexity of #1 - #4 - Weight loss will be recommended. Check TSH. This complicates his case and may hamper recovery. 6. DVT prophylaxis - Lovenox 40 mg sq daily. Total time: Approximately (but not less than) 75 minutes.
--- NOTE | 2024-04-21 10:39 | DCINST_ITS ---
Discharge Instructions Diet Discharge Diet: No restrictions DC O2, CPAP, BIPAP needs RN Home O2 Qualification: Home O2 Qualification: Is the patient on home oxygen No 04/21/24 12:00 Home O2 Qualification: AT REST 1- Pulse Ox at rest 92 04/21/24 12:00 Home O2 Qualification: WITH AMBULATION 1- Pulse Ox with ambulation 94 04/21/24 12:00 1- Oxygen Flow Rate with 0 04/21/24 12:00 ambulation Additional Home O2 Discharge instructions: No Dressing / Incision Discharge Activity: Return to Normal Activity Weight Bearing Status: Weight bearing as tolerated Dressing / Incision Call your doctor if you observe: Fever of 101 or Higher, Coldness, Increased Pain, Numbness or Tingling, Change in Color, Inability to urinate, Inability to have a bowel movement, Shortness of breath, Dizziness, Fainting spells, Swelling in the ankles, Chest pain, Prolonged hiccupping, Increased palpitations (irregular heartbeat) and Calf discomfort Follow Up Care When: IN 2 WEEKS Test Results: Test results from this visit will be discussed in further detail at your follow- up appointment, if applicable. Discharge Plan Admission Admit Date/Time: 04/20/24 22:01 Primary Reason for Your Visit: Pneumonia Attending Provider: Oseas Johnson Primary Care Provider: Pippa Boyle Consulting Providers: Ministerio Elkins Instructions Additional Instructions / Restrictions: Continue incentive spirometry and PEP for 1 week Discharge Orders/Prescriptions Prescriptions: New levofloxacin 500 mg tablet 500 mg PO DAILY 5 Days Qty: 5 0RF pseudoephedrine-guaifenesin [Mucus Relief D (pseudoephed)] 120-1,200 mg tablet extended release 12 hr 1 tab PO Q12H 7 Days Qty: 14 0RF Referrals / Follow Up: Pippa Boyle MD [Primary Care Provider] - Within 1 Week Roney Fernandez DO [Med Staff - Active Staff] - Within 1 Month (For PFT and evaluation of possible COPD) NOT,DEFINED [Non-Staff] - Disposition Disposition (needs filled in before D/C Order can be placed): Home, Self Care
[2024-04-21] MEDS: Lactobacillis Acidophilus 1 CAP PO ×2 (10:41→14:35)
[2024-04-21] MEDS: Zinc Sulfate 50 mg zinc (220 mg) ORAL capsule PO (10:41)
[2024-04-21] MEDS: Cholecalciferol (Vit D3) 125 MCG CAPSULE (5,000 UNITS) PO (10:41)
[2024-04-21] MEDS: Ceftriaxone 1 GM/50 ML BAG IV (11:45)
--- NOTE | 2024-04-21 12:41 | NURSING ---
[address] Johnson regarding O2 home documentation. patient tolerated well. 92% sitting on RA, 94% walking on RA. Fredy Gonzalez RN
--- NOTE | 2024-04-21 14:22 | DS.PCM_ITS ---
Providers Date of Admission: 04/20/24 Date of Discharge: 04/21/24 Primary Care Physician: Dr. Pippa Boyle MD Reason For Visit: CAP, HYPOXIA Diagnosis Discharge Diagnosis (1) Syncope: Status: Inactive Code(s): R55 - Syncope and collapse Qualifiers: Syncope type: unspecified Qualified Code(s): R55 - Syncope and collapse Plan 63-year-old male was brought to ED for lightheadedness/dizziness/daily, nausea started the grocery store near syncope inspection and then passed out stars and passed out in wheelchair but had complete recovery. no seizure episode. No history of epilepsy. Has recent cough but no chest pain or shortness of breath. 1 Bilateral lower lobes right more than left perihilar pneumonia: CTA of the chest that Revealed right greater than Left basilar nonspecific interstitial infiltrates due to Pneumonia with a corresponding leukocytosis of 14K present on admission: Mildly elevated D-dimer of 0.73 but CTA scan negative for PE - Admit to PCU. Patient was started on IV ceftriaxone and had 2 doses. Triple PCR for SARS-CoV-2, flu and RSV are negative. Patient is being managed on Mucinex, incentive spirometry and Pep. Patient does not have insurance, self-pay and wants to go home. Discharged on 5 more days of Levaquin and Mucinex DM. Walking pulse oximetry shows patient does not need oxygen 2. Chronic smoker and suspected COPD: Patient has history of cigarette smoke started in teenage but was sober for about 10 years and then then started smoking more than a pack per day. Patient has chronic cough with mild mucus production but denies shortness of breath on exertion. Not on home oxygen. Advised follow-up in pulmonary clinic for PFT as patient might have COPD. 3. Syncope with hypotension into the ~80mmHg systolic range: Patient has an appointment with Dr. Krishnamurthy, his new PCP after the halfway of Dr. Abdullahi Lozano. Advised outpatient echo. 4. Obesity; with BMI of 35.6 this admission Weight loss will be recommended. TSH normal 5. DVT prophylaxis - Lovenox 40 mg sq daily. Discharge medication reconciliation done. Discharge follow-up instructions completed. Discharge process discussed with the patient and all questions were answered to patient's satisfaction. Follow with PCP in 1 to 2 weeks Total time spent, exact 35 minutes on discharge meds reconciliation, examination, coordination of care with nurses and ancillary staff, review of imaging and blood test and discussion with the patient on follow-up instructions. Medications at Discharge Home Medications levofloxacin 500 mg tablet 500 mg PO DAILY 5 days #5 tabs 04/21/24 pseudoephedrine-guaifenesin ER 120 mg-1,200 mg tab,extend release 12hr (Mucus Relief D (pseudoephed)) 1 tab PO Q12H cold symptoms 1 week #14 tabs 04/21/24 Physical Exam Narrative Seen and examined. Generally patient does not have shortness of breath but he felt mild shortness of breath on walking yesterday prior to admission. Chronic cough. Chronic smoker. Physical exam General: Alert, Oriented x3, Cooperative, obesity grade 1 BMI 34.8 kg/m? HEENT: Atraumatic, PERRLA, EOMI, Normocephalic Oral: No Gingival or Mucosal Lesions/ Ulcerations Neck: Supple, No JVD, Negative Carotid Bruits Chest wall/Lungs: Air entry diminished in bilateral lung bases. Mild bilateral expiratory rhonchi Cardiovascular: Regular rate, Regular Rhythm, Normal S1, Normal S2, No M/G/R Abdomen: Bowel Sounds Present, Soft, Non Tender, Non-Distended : No dysuria. No renal angle tenderness. No suprapubic tenderness. Extremities: No edema, Capillary Refill Less than 3 Seconds Skin: No rashes, No breakdown Musculoskeletal: No Tenderness to Palpation of Joints or Extremities Neurological: Cranial nerves II-XII grossly intact, DTR 2+/4. No acute focal neurological deficit. Psych/Mental Status: Normal Affect, Appropriate. Weight / BMI Weight Weight: 271 lb 4.99 oz Body Mass Index (BMI) 34.8 ABG / Lab / Microbiology Data 04/20/24 15:40 04/20/24 15:40 Laboratory: Laboratory Results - last 24 hr 04/20/24 15:40: WBC 14.0 H, RBC 5.62, Hgb 16.9 H, Hct 50.7, MCV 90.2, MCH 30.1, MCHC 33.3, RDW Std Deviation 45.3 H, RDW Coeff of Renetta 13.6, Plt Count 218, MPV 11.1, D-Dimer Quant (PE/DVT) 0.73 H*, Sodium 138, Potassium 3.9, Chloride 108 H, Carbon Dioxide 24.0, Anion Gap 6, BUN 19 H, Creatinine 1.13, Estim Creat Clear Calc 95.49, Est GFR (MDRD) Af Amer 84, Est GFR (MDRD) Non-Af 70, BUN/Creatinine Ratio 16.8, Glucose 103, Calcium 9.1, Total Bilirubin 0.40, AST 18, ALT 26, Alkaline Phosphatase 81, Troponin I High Sens < 3 L, B-Natriuretic Peptide 19.1, Total Protein 7.9, Albumin 3.7, Globulin 4.2, Albumin/Globulin Ratio 0.9, Lipase 22, Vitamin B12 320 04/20/24 17:59: Troponin I High Sens < 3 L, Folate 16.40, TSH 1.290 04/20/24 23:02: Ethyl Alcohol < 3.0 Microbiology: Microbiology 04/20/24 15:45 Mucosa - Nasopharyngeal SARS-CoV-2, Influenza & RSV (PCR) - Final Radiography Diagnostic Testing: Radiology Impression Brain CT 04/20/24 15:42 IMPRESSION: Normal unenhanced CT scan of the brain. Electronically Signed: Delonte Soria MD at 19:19 EST Reading Location ID and State: [address] [place] [address] Tel , Service support , Abdomen/Pelvis CT 04/20/24 15:43 IMPRESSION: Right lower lobe interstitial infiltrate. Coronary artery disease. Left adrenal adenoma. Small Duodenal diverticulum. Ileus. Mild compression fractures age indeterminate. Electronically Signed: Delonte Soria MD at 19:04 EST Reading Location ID and State: [address] [place] [address] Tel , Service support , Chest X-Ray 04/20/24 16:05 IMPRESSION: Possible mild bilateral perihilar interstitial infiltrates. Electronically Signed: Delonte Soria MD at 18:43 EST Reading Location ID and State: [address] [place] [address] Tel , Service support , Chest CTA 04/20/24 16:15 IMPRESSION: Right greater than left basilar nonspecific interstitial infiltrates. Recommend follow-up. Coronary artery disease. Electronically Signed: Delonte Soria MD at 18:48 EST Reading Location ID and State: [facility] [place] Tel , Service support , D/C Instructions Discharge Diet: No restrictions Weight Bearing Status: Weight bearing as tolerated Call your doctor if you observe: Fever of 101 or Higher, Coldness, Increased Pain, Numbness or Tingling, Change in Color, Inability to urinate, Inability to have a bowel movement, Shortness of breath, Dizziness, Fainting spells, Swelling in the ankles, Chest pain, Prolonged hiccupping, Increased palpitations (irregular heartbeat) and Calf discomfort DC O2, CPAP, BIPAP Needs RN Home O2 Qualification: Home O2 Qualification: Is the patient on home oxygen No 04/21/24 12:00 Home O2 Qualification: AT REST 1- Pulse Ox at rest 92 04/21/24 12:00 Home O2 Qualification: WITH AMBULATION 1- Pulse Ox with ambulation 94 04/21/24 12:00 1- Oxygen Flow Rate with 0 04/21/24 12:00 ambulation Additional Home O2 Discharge instructions: No DC home with Oxygen: No When: IN 2 WEEKS Meaningful Use Info Meaningful Use Meaningful Use Diagnoses (Choose all that apply): None applicable Ischemic Stroke Statin Dosing Therapy Reference: STATIN DOSE THERAPY REFERENCE: * Patients > 75 years receive moderate or high dose statin therapy. * Patients 75 years or YOUNGER should receive HIGH intensity statin dose unless contraindicated. You will be required to document reason for non-treatment if statin daily dose does not meet guidelines. HIGH DOSE STATIN THERAPY DAILY Atorvastatin > than or = to 40 mg Rosuvastatin > than or = to 20 mg Amlodipine + Atorvastatin > than or = to 2.5/40 mg Ezetimibe + Simvastatin 10/80 mg Simvastatin 80mg Discharge Plan Admission Admit Date/Time: 04/20/24 22:01 Primary Reason for Your Visit: Pneumonia Attending Provider: Oseas Johnson Primary Care Provider: Pippa Boyle Consulting Providers: Ministerio Elkins Instructions Additional Instructions / Restrictions: Continue incentive spirometry and PEP for 1 week Discharge Orders/Prescriptions Prescriptions: New levofloxacin 500 mg tablet 500 mg PO DAILY 5 Days Qty: 5 0RF pseudoephedrine-guaifenesin [Mucus Relief D (pseudoephed)] 120-1,200 mg tablet extended release 12 hr 1 tab PO Q12H 7 Days Qty: 14 0RF Referrals / Follow Up: Pippa Boyle MD [Primary Care Provider] - Within 1 Week Roney Fernandez DO [Med Staff - Active Staff] - Within 1 Month (For PFT and evaluation of possible COPD) NOT,DEFINED [Non-Staff] - Disposition Disposition (needs filled in before D/C Order can be placed): Home, Self Care Charges/Coding Addendum Addendum: Patient was admitted as inpatient but was discharged because of sooner recovery of shortness of breath and patient not hypoxic or tachypneic than expected at time of admission. Patient is also self-pay and does not want to stay. He does not have insurance Visit Charges Inpatient E&M: 20198 Disch Hosp >30min
[2024-04-21] MEDS: Acetaminophen 325 MG Tablet 650 MG PO (14:34)
== END 2024-04-21 15:03 | disposition home or self-care (01) | DRG 194 ==
LOC: ED 16:49 → PCU 22:06
PROVIDERS: Admitting Provider Internal Medicine; Emergency Provider Emergency Medicine; PCP Internal Medicine; Referring Provider Internal Medicine; Visit Provider Internal Medicine
DX: J18.9 Pneumonia, unspecified organism (principal); J44.0 Chronic obstructive pulmonary disease with (acute) lower respiratory infection; E66.9 Obesity, unspecified; F17.210 Nicotine dependence, cigarettes, uncomplicated; I95.9 Hypotension, unspecified; R55 Syncope and collapse; Z68.35 Body mass index [BMI] 35.0-35.9, adult; R06.89 Other abnormalities of breathing
CPT/HCPCS: 36415; 70450; 71045; 71275; 74177; 80053; 82077; 82607; 82746; 83690; 83880; 84443; 84484; 85027; 85379; 87631; 93005; 93880; 99285; J7030; J7040; Q9967; A4216; J2405